=== PATIENT | male | born 1995 | race Caucasian/White ===

== ENCOUNTER 2018-10-08 21:03 | Emergency (ER) | payer SELFPAY ==
[2018-10-08] MEDS ORDERED: CHLORHEXIDINE GLUCONATE 4 % 15 ML UD TOP ONE (21:10)
[2018-10-08] MEDS ORDERED: LIDOCAINE 1% W/ EPINEPHRINE 20 ML VIAL INJ ONE (21:10)
[2018-10-08 21:27] VITALS: TEMP 98.6
[2018-10-08] MEDS ORDERED: CIPROFLOXACIN 500 MG TAB PO ONE (21:56)
[2018-10-08] MEDS ORDERED: SULFA/TRIMETH 800/160 (DS) TAB 1 EA TAB PO ONE (21:56)
[2018-10-08] MEDS ORDERED: TETANUS,DIPHTHERIA,PERTUSSIS 1 EA SYG IM ONE (21:56)
--- NOTE | 2018-10-08 22:02 | ED.PDOC ---
History of Present Illness - General Chief Complaint: Laceration Stated Complaint: jumped out of window Time Seen by Provider: 10/08/18 21:06 Source: patient Exam Limitations: no limitations - History of Present Illness Initial Comments: the patient is a 22-year-old male presenting to emergency room secondary to having tripped and fallen through a plate glass window. He has numerous lacerations over his scalp as well as a three-quarter inch laceration over the metacarpal phalangeal joint of the third digit of the right hand. There was no glass in the hand wound and multiple pieces of glass were removed from the scalp wounds. Risk and benefits of repair were explained to patient prior and he agree to proceed. Tendon function appears to be preserved in the hand. Sens ation appears to be preserved in the hand. Capillary refills within normal limits. No evidence of any injury to the eyes. Blood loss prior to arrival was probably around 50 cc. Wounds are cleaned with hydrogen peroxide. The wound to the hand was irrigated with saline. a 4 inch laceration to the left frontal scalp was repaired with 7 simple sutures of 4-0 Vicryl. A 3 inch laceration just below it was repaired with 7 simple sutures of 4-0 Vicryl. 5 other smaller lacerations all less than 1 inch in length were repaired with either single or double simple sutures around the scalp. Patient tolerated these repairs well. The 2 large scalp wounds were anesthetized with lidocaine with epinephrine prior for a total of 6 cc. The hand wound was anesthetized with 2 cc of lidocaine without epinephrine. Sterile prep and drape were used.3 simple sutures of 4-0 Ethilon were used to reapproximation of the finger laceration. Patient seems to have tolerated the repair well. Timing/Duration: momentarily Severity: moderate Improving Factors: nothing Worsening Factors: nothing Associated Symptoms: denies symptoms Allergies/Adverse Reactions: Allergies NO KNOWN ALLERGY Allergy (Verified 10/08/18 21:28) Home Medications: Ambulatory Orders Ciprofloxacin [Cipro] 500 mg PO BID #20 tab 10/08/18 Sulfa/Trimeth 800/160 (Ds) Tab [Bactrim DS Tab] 1 ea PO BID #20 tab 10/08/18 Review of Systems - Review of Systems Constitutional: States: no symptoms reported EENTM: States: no symptoms reported Respiratory: States: no symptoms reported Cardiology: States: no symptoms reported Gastrointestinal/Abdominal: States: no symptoms reported Genitourinary: States: no symptoms reported Musculoskeletal: States: no symptoms reported Skin: States: see HPI Neurological: States: no symptoms reported Endocrine: States: no symptoms reported All other Systems: No Change from Baseline Past Medical History (General) - Patient Medical History Hx Seizures: No Hx Stroke: No Hx Dementia: No Hx Asthma: No Hx of COPD: No Hx Cardiac Disorders: No Hx Congestive Heart Failure: No Hx Pacemaker: No Hx Hypertension: No Hx Thyroid Disease: No Hx Diabetes: No Hx Gastroesophageal Reflux: No Hx Renal Disease: No Hx Cancer: No Hx of HIV: No Hx Hepatitis C: No Hx MRSA: No Surgical History: no surgical history - Vaccination History Hx Tetanus, Diphtheria Vaccination: No Hx Influenza Vaccination: No Hx Pneumococcal Vaccination: No - Social History Hx Tobacco Use: No Hx Chewing Tobacco Use: Yes - 1can per 3-4 days Hx Alcohol Use: No Hx Substance Use: No Hx Substance Use Treatment: No Hx Depression: No Hx Physical Abuse: No Hx Emotional Abuse: No Hx Suspected Abuse: No - Female History Patient : No Family Medical History - Family History Mother Living Status: Still Living Hx Family Cancer: Yes Physical Exam - Physical Exam General Appearance: Alert, Comfortable, No apparent distress Eye Exam: bilateral normal Ears, Nose, Throat: hearing grossly normal, normal ENT inspection, normal pharynx Neck: full range of motion, supple Respiratory: no respiratory distress, no accessory muscle use Cardiovascular/Chest: normal peripheral pulses, no edema Peripheral Pulses: radial,right: 2+, radial,left: 2+ Gastrointestinal/Abdominal: non tender, soft Rectal Exam: deferred Back Exam: normal inspection Extremity: normal range of motion, no pedal edema, normal capillary refill Neurologic: manager story II-XII nml as tested, alert, normal mood/affect, oriented x 3 Skin Exam: normal color - lacerations as above. Comments: Vital Signs - 24 hr 10/08/18 21:05 Temperature 98.6 F Pulse Rate [ 85 monitor] Respiratory 18 Rate Blood Pressure 141/81 [Right Arm] O2 Sat by Pulse 97 Oximetry Progress - Progress Progress: 10/08/18 22:02 the patient is a 22-year-old male that fell through a plate glass window and sustained numerous lacerations to his scalp and a laceration to his right hand. The wounds were cleaned and anesthetized. Sutures were placed. He is going to have to take a shower tonight in order to rinse off some of the dried blood and the very tiny pieces of glass that still somewhat cover him. He has received a tetanus shot and he has been started on Bactrim and ciprofloxacin which will be continued for 10 days primarily to prevent infection of the finger site. He needs to try and avoid flexing the third digit of the right hand for at least 10 days to 2 weeks to keep from pulling the sutures out. Sutures can come out on the scalp in around 7 days. they will need to stay in probably another week longer on the finger. ER warnings are given for any evidence of infection or complication. He needs to wash the area daily at least with an antibacterial soap. Departure - Departure Clinical Impression: Accidental laceration ICD-10 Supporting Text: accidental lacerations to the scalp and hand. Approximately 23 stitches placed. Disposition: Discharge to Home or Self Care Condition: Fair Departure Forms: ED Discharge - Pt. Copy, Patient Portal Self Enrollment Instructions: DI for Laceration Repair, DI for Laceration Repair -- Simple Diet: regular diet Activity: no pushing/pulling with affected limb Referrals: Doug Mitchell MD [Primary Care Provider] - 1-2 Weeks Prescriptions: Ciprofloxacin [Cipro] 500 mg PO BID #20 tab Sulfa/Trimeth 800/160 (Ds) Tab [Bactrim DS Tab] 1 ea PO BID #20 tab Home Medications: Ambulatory Orders Ciprofloxacin [Cipro] 500 mg PO BID #20 tab 10/08/18 Sulfa/Trimeth 800/160 (Ds) Tab [Bactrim DS Tab] 1 ea PO BID #20 tab 10/08/18 Additional Instructions: the patient is a 22-year-old male that fell through a plate glass window and sustained numerous lacerations to his scalp and a laceration to his right hand. The wounds were cleaned and anesthetized. Sutures were placed. He is going to have to take a shower tonight in order to rinse off some of the dried blood and the very tiny pieces of glass that still somewhat cover him. He has received a tetanus shot and he has been started on Bactrim and ciprofloxacin which will be continued for 10 days primarily to prevent infection of the finger site. He needs to try and avoid flexing the third digit of the right hand for at least 10 days to 2 weeks to keep from pulling the sutures out. Sutures can come out on the scalp in around 7 days. they will need to stay in probably another week longer on the finger. ER warnings are given for any evidence of infection or complication. He needs to wash the area daily at least with an antibacterial soap.
[2018-10-08] MEDS ORDERED: NEOMYCIN-BACITRACIN-POLYMYXIN 0.9 GM UD TOP ONE (22:11)
[2018-10-08 22:18] VITALS: BP 139/77; O2SAT 98
== END 2018-10-08 22:18 | disposition home or self-care (01) ==
LOC: ER 21:03
DX: S01.02XA Laceration with foreign body of scalp, initial encounter (principal); S61.411A Laceration without foreign body of right hand, initial encounter; W25.XXXA Contact with sharp glass, initial encounter; Z87.891 Personal history of nicotine dependence; Z23 Encounter for immunization; Y92.9 Unspecified place or not applicable